=== PATIENT | male | born 1950 | race Caucasian/White ===

== ENCOUNTER 2019-01-07 20:58 | Inpatient (IN) | payer MEDICARE ==
[2019-01-07 21:16] LABS: ADD MAN DIFF? NO
[2019-01-07 21:18] LABS: WHITE BLOOD COUNT 9.5 10^3/ul (4.8-10.8)
[2019-01-07 21:18] LABS: BASOPHILS % 0.3 % (0.0-2.0); EOSINOPHILS # 0.1 10^3/ul (0.0-0.5); EOSINOPHILS % 0.8 % (0.0-7.0); HEMATOCRIT 33.2 % (42.0-52.0); HEMOGLOBIN 10.9 g/dl (14.0-18.0); LYMPHOCYTES # 2.3 10^3/ul (0.8-2.9); LYMPHOCYTES % 24.4 % (15.0-51.0); MEAN CORPUSCULAR HEMOGLOBIN 29.9 pg (29.0-33.0); MEAN CORPUSCULAR HGB CONC 32.8 g/dl (32.0-37.0); MEAN CORPUSCULAR VOLUME 91.2 fl (82.0-101.0); MEAN PLATELET VOLUME 9.8 fl (7.4-10.4); MONOCYTE # 0.5 10^3/ul (0.3-0.9); MONOCYTES % 5.2 % (0.0-11.0); NEUTROPHIL # 6.5 10^3/ul (1.6-7.5); NEUTROPHILS % 68.9 % (39.0-77.0); PLATELET COUNT 231 10^3/UL (140-415); RED BLOOD COUNT 3.64 10^6/ul (4.70-6.10); RED CELL DISTRIBUTION WIDTH 12.4 % (11.5-14.5)
[2019-01-07 21:25] LABS: INR 0.96; PROTIME 12.9 Sec (11.9-14.9)
[2019-01-07 21:27] LABS: ALANINE AMINOTRANSFERASE 15 IU/L (13-69); ALBUMIN 3.8 g/dl (3.3-4.9); ALBUMIN/GLOBULIN RATIO 1.52; ALKALINE PHOSPHATASE 50 IU/L (42-121); ANION GAP 12 (5-13); ASPARTATE AMINO TRANSFERASE 19 IU/L (15-46); BILIRUBIN,INDIRECT 0.4 mg/dl (0-1.1); BILIRUBIN,TOTAL 0.4 mg/dl (0.2-1.3); BLOOD UREA NITROGEN 22 mg/dl (7-20); CALCIUM 9.4 mg/dl (8.4-10.2); CARBON DIOXIDE 24 mmol/L (21-31); CHLORIDE 107 mmol/L (97-110); CREATININE 0.86 mg/dl (0.61-1.24); Estimated GFR > 60 mL/min (>60); GLUCOSE 140 mg/dl (70-220); POTASSIUM 3.7 mmol/L (3.5-5.1); SODIUM 143 mmol/L (135-144); TOTAL PROTEIN 6.3 g/dl (6.1-8.1)
[2019-01-07 21:38] LABS: TROPONIN-I < 0.012 ng/ml (0.000-0.120)
[2019-01-07] MEDS: SOD CHLORIDE 0.9% 500 ML IV (21:40)
[2019-01-07] MEDS: PANTOPRAZOLE IV 80 MG in SOD CHLORIDE 0.9% 100 ML IVPB (21:41)
[2019-01-07] MEDS: PANTOPRAZOLE IV 80 MG in SOD CHLORIDE 0.9% 100 ML IV (21:41)
[2019-01-07] MEDS: ONDANSETRON INJ 8 MG in DEXTROSE 5% 50 ML IVPB (21:52)
[2019-01-07] MEDS: OCTREOTIDE 50 MCG in SOD CHLORIDE 0.9% 25 ML IVPB (21:52)
[2019-01-07] MEDS: OCTREOTIDE 500 MCG in SOD CHLORIDE 0.9% 49 ML IV (21:52)
[2019-01-07] MEDS ORDERED: ONDANSETRON 4 MG INJ IV ×2 (23:00→23:30)
[2019-01-07] MEDS ORDERED: ACETAMINOPHEN 325 MG TAB PO (23:00)
[2019-01-07] MEDS: SOD CHLORIDE 0.9% 1,000 ML IV ×2 (23:28→23:29)
[2019-01-07] MEDS ORDERED: HYDROCODONE/APAP (5/325) TAB PO (23:30)
[2019-01-07] MEDS ORDERED: NITROGLYCERIN (SL) 0.4 MG TAB SL (23:30)
[2019-01-07] MEDS ORDERED: hydrALAzine 20 MG INJ IV (23:30)
[2019-01-07] MEDS ORDERED: NACL 0.9% 3 ML SYG IV (23:30)
[2019-01-07] MEDS ORDERED: MAGNESIUM HYDROXIDE 30ML CUP PO (23:30)
[2019-01-07] MEDS ORDERED: morphine 2 MG INJ IV (23:30)
[2019-01-07] MEDS ORDERED: LORAZEPAM 2 MG INJ IV (23:30)
[2019-01-07] MEDS ORDERED: DOCUSATE SODIUM 100 MG CAP PO (23:30)
[2019-01-07 23:58] LABS: FREE T4 (FREE THYROXINE) 1.22 ng/dl (0.78-2.44)
[2019-01-08] MEDS: PANTOPRAZOLE 40 MG INJ IV ×2 (05:34→17:11)
[2019-01-08 06:48] LABS: ADD MAN DIFF? NO; BASOPHILS % 0.3 % (0.0-2.0); EOSINOPHILS % 0.4 % (0.0-7.0); HEMATOCRIT 29.5 % (42.0-52.0); HEMOGLOBIN 9.6 g/dl (14.0-18.0); LYMPHOCYTES # 2.5 10^3/ul (0.8-2.9); LYMPHOCYTES % 35.8 % (15.0-51.0); MEAN CORPUSCULAR HEMOGLOBIN 29.4 pg (29.0-33.0); MEAN CORPUSCULAR HGB CONC 32.5 g/dl (32.0-37.0); MEAN CORPUSCULAR VOLUME 90.2 fl (82.0-101.0); MEAN PLATELET VOLUME 9.7 fl (7.4-10.4); MONOCYTE # 0.6 10^3/ul (0.3-0.9); MONOCYTES % 8.6 % (0.0-11.0); NEUTROPHIL # 3.8 10^3/ul (1.6-7.5); NEUTROPHILS % 54.5 % (39.0-77.0); PLATELET COUNT 211 10^3/UL (140-415); RED BLOOD COUNT 3.27 10^6/ul (4.70-6.10); RED CELL DISTRIBUTION WIDTH 12.6 % (11.5-14.5)
[2019-01-08 07:17] LABS: ANION GAP 6 (5-13); BLOOD UREA NITROGEN 19 mg/dl (7-20); CARBON DIOXIDE 28 mmol/L (21-31); CHLORIDE 107 mmol/L (97-110); CREATININE 0.76 mg/dl (0.61-1.24); Estimated GFR > 60 mL/min (>60); GLUCOSE 122 mg/dl (70-220); MAGNESIUM 1.9 mg/dl (1.7-2.5); PHOSPHORUS 3.9 mg/dl (2.5-4.9); POTASSIUM 4.8 mmol/L (3.5-5.1); SODIUM 141 mmol/L (135-144)
[2019-01-08 07:20] LABS: CHOLESTEROL 162 mg/dl (100-200)
[2019-01-08 07:20] LABS: CHOL/HDL RATIO 3.5 RATIO; HDL CHOLESTEROL 46 mg/dl (31-75); LDL CHOLESTEROL,CALCULATED 94 mg/dl; TRIGLYCERIDES 111 mg/dl (0-149)
[2019-01-08 07:43] LABS: THYROID STIMULATING HORMONE 0.384 MIU/L (0.465-4.680)
[2019-01-08 08:33] LABS: HEMOGLOBIN A1C 5.4 % (0-5.9)
[2019-01-08] MEDS: SOD CHLORIDE 0.9% 1,000 ML IV ×3 (09:04→18:56)
[2019-01-08] MEDS ORDERED: LIDOCAINE 2% (SDV) 5 ML INJ (12:27)
[2019-01-08] MEDS ORDERED: PROPOFOL 40 ML (12:27)
[2019-01-08] MEDS ORDERED: hydrALAzine 20 MG INJ IV (12:30)
[2019-01-08] MEDS ORDERED: DIPHENHYDRAMINE 50 MG INJ IV (12:30)
[2019-01-08] MEDS ORDERED: EPHEDrine 25 MG/5 ML SYG IV (12:30)
[2019-01-08] MEDS ORDERED: ONDANSETRON 4 MG INJ IV (12:30)
[2019-01-08] MEDS ORDERED: METOCLOPRAMIDE 10 MG INJ IV (12:30)
[2019-01-08] MEDS ORDERED: FENTAnyl 50 MCG/ML VIAL IV (12:30)
[2019-01-08] MEDS ORDERED: LABETALOL HCL 20MG INJ IV (12:30)
[2019-01-08] MEDS: SUCRALFATE 1 GM TAB PO ×3 (13:51→20:03)
[2019-01-08 18:58] LABS: HEMATOCRIT 26.6 % (42.0-52.0); HEMOGLOBIN 8.8 g/dl (14.0-18.0)
[2019-01-09] MEDS: ACETAMINOPHEN 325 MG TAB PO ×2 (00:05→08:27)
[2019-01-09 00:53] LABS: HEMATOCRIT 23.5 % (42.0-52.0); HEMOGLOBIN 7.7 g/dl (14.0-18.0)
[2019-01-09] MEDS: SOD CHLORIDE 0.9% 1,000 ML IV ×4 (01:53→18:37)
[2019-01-09] MEDS: PANTOPRAZOLE 40 MG INJ IV ×2 (05:21→17:06)
[2019-01-09 06:24] LABS: ADD MAN DIFF? NO
[2019-01-09 06:29] LABS: WHITE BLOOD COUNT 6.1 10^3/ul (4.8-10.8)
[2019-01-09 06:29] LABS: BASOPHILS % 0.5 % (0.0-2.0); EOSINOPHILS # 0.1 10^3/ul (0.0-0.5); EOSINOPHILS % 2.1 % (0.0-7.0); HEMATOCRIT 25.4 % (42.0-52.0); HEMOGLOBIN 8.2 g/dl (14.0-18.0); LYMPHOCYTES # 2.9 10^3/ul (0.8-2.9); LYMPHOCYTES % 46.8 % (15.0-51.0); MEAN CORPUSCULAR HGB CONC 32.3 g/dl (32.0-37.0); MEAN CORPUSCULAR VOLUME 89.8 fl (82.0-101.0); MEAN PLATELET VOLUME 9.9 fl (7.4-10.4); MONOCYTE # 0.4 10^3/ul (0.3-0.9); NEUTROPHIL # 2.6 10^3/ul (1.6-7.5); NEUTROPHILS % 43.1 % (39.0-77.0); PLATELET COUNT 190 10^3/UL (140-415); RED BLOOD COUNT 2.83 10^6/ul (4.70-6.10); RED CELL DISTRIBUTION WIDTH 12.6 % (11.5-14.5)
[2019-01-09 07:12] LABS: ANION GAP 4 (5-13); BLOOD UREA NITROGEN 13 mg/dl (7-20); CALCIUM 8.4 mg/dl (8.4-10.2); CARBON DIOXIDE 25 mmol/L (21-31); CHLORIDE 111 mmol/L (97-110); CREATININE 0.77 mg/dl (0.61-1.24); Estimated GFR > 60 mL/min (>60); GLUCOSE 102 mg/dl (70-220); POTASSIUM 3.7 mmol/L (3.5-5.1); SODIUM 140 mmol/L (135-144)
[2019-01-09] MEDS: SUCRALFATE 1 GM TAB PO ×4 (08:27→20:59)
[2019-01-09 14:24] LABS: HEMATOCRIT 24.4 % (42.0-52.0)
[2019-01-09] MEDS: IOHEXOL 14.3 MG(I)/ML (ADULT) BTL PO (18:42)
[2019-01-09 20:11] LABS: HEMATOCRIT 28.7 % (42.0-52.0); HEMOGLOBIN 9.4 g/dl (14.0-18.0)
[2019-01-09] MEDS ORDERED: SOD CHLORIDE 0.9% 100 ML (20:36)
[2019-01-09] MEDS ORDERED: IOHEXOL 300MG/ML 150 ML BTL (20:36)
[2019-01-10 01:00] LABS: HEMATOCRIT 24.6 % (42.0-52.0); HEMOGLOBIN 8.1 g/dl (14.0-18.0)
[2019-01-10] MEDS: PANTOPRAZOLE 40 MG INJ IV ×2 (05:04→17:11)
[2019-01-10] MEDS: SOD CHLORIDE 0.9% 1,000 ML IV ×3 (05:04→14:57)
[2019-01-10 06:41] LABS: ADD MAN DIFF? NO
[2019-01-10 06:57] LABS: BASOPHILS % 0.6 % (0.0-2.0); EOSINOPHILS # 0.2 10^3/ul (0.0-0.5); EOSINOPHILS % 2.5 % (0.0-7.0); HEMATOCRIT 25.1 % (42.0-52.0); HEMOGLOBIN 8.2 g/dl (14.0-18.0); LYMPHOCYTES # 2.9 10^3/ul (0.8-2.9); MEAN CORPUSCULAR HEMOGLOBIN 29.5 pg (29.0-33.0); MEAN CORPUSCULAR HGB CONC 32.7 g/dl (32.0-37.0); MEAN CORPUSCULAR VOLUME 90.3 fl (82.0-101.0); MEAN PLATELET VOLUME 9.8 fl (7.4-10.4); MONOCYTE # 0.6 10^3/ul (0.3-0.9); MONOCYTES % 8.3 % (0.0-11.0); NEUTROPHIL # 3.2 10^3/ul (1.6-7.5); NEUTROPHILS % 46.2 % (39.0-77.0); PLATELET COUNT 219 10^3/UL (140-415); RED BLOOD COUNT 2.78 10^6/ul (4.70-6.10); RED CELL DISTRIBUTION WIDTH 12.5 % (11.5-14.5)
[2019-01-10 06:57] LABS: WHITE BLOOD COUNT 6.9 10^3/ul (4.8-10.8)
[2019-01-10 07:25] LABS: ANION GAP 6 (5-13); BLOOD UREA NITROGEN 14 mg/dl (7-20); CALCIUM 8.7 mg/dl (8.4-10.2); CARBON DIOXIDE 27 mmol/L (21-31); CHLORIDE 108 mmol/L (97-110); CREATININE 0.74 mg/dl (0.61-1.24); Estimated GFR > 60 mL/min (>60); GLUCOSE 106 mg/dl (70-220); POTASSIUM 4.3 mmol/L (3.5-5.1); SODIUM 141 mmol/L (135-144)
[2019-01-10 07:41] LABS: FREE T4 (FREE THYROXINE) 1.08 ng/dl (0.78-2.44)
[2019-01-10 07:42] LABS: FREE T3 3.54 pg/ml (2.77-5.27)
[2019-01-10] MEDS: SUCRALFATE 1 GM TAB PO ×4 (08:11→20:23)
[2019-01-10 13:52] LABS: HEMATOCRIT 25.9 % (42.0-52.0); HEMOGLOBIN 8.6 g/dl (14.0-18.0)
[2019-01-10] MEDS ORDERED: ALBUTEROL 0.083% (NEB) 2.5 MG/3 ML AMP HHN (16:30)
[2019-01-10] MEDS: ALBUTEROL/IPRATROPIUM (NEB) 3 ML AMP HHN (17:26)
[2019-01-11] MEDS: PANTOPRAZOLE 40 MG INJ IV ×2 (05:59→17:24)
[2019-01-11 06:30] LABS: ADD MAN DIFF? NO
[2019-01-11 06:43] LABS: WHITE BLOOD COUNT 5.9 10^3/ul (4.8-10.8)
[2019-01-11 06:43] LABS: BASOPHILS % 0.7 % (0.0-2.0); EOSINOPHILS # 0.2 10^3/ul (0.0-0.5); EOSINOPHILS % 2.9 % (0.0-7.0); HEMATOCRIT 25.5 % (42.0-52.0); HEMOGLOBIN 8.6 g/dl (14.0-18.0); LYMPHOCYTES # 2.6 10^3/ul (0.8-2.9); LYMPHOCYTES % 44.7 % (15.0-51.0); MEAN CORPUSCULAR HEMOGLOBIN 29.9 pg (29.0-33.0); MEAN CORPUSCULAR HGB CONC 33.7 g/dl (32.0-37.0); MEAN CORPUSCULAR VOLUME 88.5 fl (82.0-101.0); MEAN PLATELET VOLUME 9.6 fl (7.4-10.4); MONOCYTE # 0.6 10^3/ul (0.3-0.9); MONOCYTES % 9.5 % (0.0-11.0); NEUTROPHIL # 2.5 10^3/ul (1.6-7.5); NEUTROPHILS % 41.7 % (39.0-77.0); PLATELET COUNT 244 10^3/UL (140-415); RED BLOOD COUNT 2.88 10^6/ul (4.70-6.10); RED CELL DISTRIBUTION WIDTH 12.6 % (11.5-14.5)
[2019-01-11 06:53] LABS: ANION GAP 8 (5-13); BLOOD UREA NITROGEN 12 mg/dl (7-20); CALCIUM 9.2 mg/dl (8.4-10.2); CARBON DIOXIDE 28 mmol/L (21-31); CHLORIDE 105 mmol/L (97-110); CREATININE 0.75 mg/dl (0.61-1.24); Estimated GFR > 60 mL/min (>60); GLUCOSE 107 mg/dl (70-220); POTASSIUM 3.7 mmol/L (3.5-5.1); SODIUM 141 mmol/L (135-144)
[2019-01-11] MEDS: ALBUTEROL/IPRATROPIUM (NEB) 3 ML AMP HHN (07:54)
[2019-01-11] MEDS: SUCRALFATE 1 GM TAB PO ×4 (08:08→20:04)
[2019-01-12] MEDS: PANTOPRAZOLE 40 MG INJ IV (05:25)
[2019-01-12 07:05] LABS: ADD MAN DIFF? NO
[2019-01-12 07:08] LABS: BASOPHILS % 0.7 % (0.0-2.0); EOSINOPHILS # 0.2 10^3/ul (0.0-0.5); HEMATOCRIT 26.6 % (42.0-52.0); LYMPHOCYTES # 2.5 10^3/ul (0.8-2.9); LYMPHOCYTES % 40.5 % (15.0-51.0); MEAN CORPUSCULAR HEMOGLOBIN 30.1 pg (29.0-33.0); MEAN CORPUSCULAR HGB CONC 33.8 g/dl (32.0-37.0); MEAN PLATELET VOLUME 9.4 fl (7.4-10.4); MONOCYTE # 0.5 10^3/ul (0.3-0.9); MONOCYTES % 8.9 % (0.0-11.0); NEUTROPHIL # 2.8 10^3/ul (1.6-7.5); NEUTROPHILS % 46.6 % (39.0-77.0); PLATELET COUNT 277 10^3/UL (140-415); RED BLOOD COUNT 2.99 10^6/ul (4.70-6.10); RED CELL DISTRIBUTION WIDTH 12.8 % (11.5-14.5)
[2019-01-12 07:08] LABS: WHITE BLOOD COUNT 6.1 10^3/ul (4.8-10.8)
[2019-01-12 07:28] LABS: ANION GAP 10 (5-13); BLOOD UREA NITROGEN 13 mg/dl (7-20); CARBON DIOXIDE 27 mmol/L (21-31); CHLORIDE 105 mmol/L (97-110); CREATININE 0.71 mg/dl (0.61-1.24); Estimated GFR > 60 mL/min (>60); GLUCOSE 111 mg/dl (70-220); POTASSIUM 3.6 mmol/L (3.5-5.1); SODIUM 142 mmol/L (135-144)
[2019-01-12] MEDS: SUCRALFATE 1 GM TAB PO (08:04)
== END 2019-01-12 12:05 | disposition home or self-care (01) | DRG 374 ==
LOC: TEL 22:57 → E/R 20:58
PROC: 0DB68ZX Excision of Stomach, Via Natural or Artificial Opening Endoscopic, Diagnostic (ICD-10-PCS; principal; 2019-01-08 11:30)
DX: C16.9 Malignant neoplasm of stomach, unspecified (principal); K25.4 Chronic or unspecified gastric ulcer with hemorrhage; K92.0 Hematemesis; D62 Acute posthemorrhagic anemia; K22.10 Ulcer of esophagus without bleeding; D50.9 Iron deficiency anemia, unspecified; K44.9 Diaphragmatic hernia without obstruction or gangrene; N40.0 Benign prostatic hyperplasia without lower urinary tract symptoms; Z87.891 Personal history of nicotine dependence
CPT/HCPCS: 36415; 71045; 74178; 80048; 80053; 80061; 83036; 83735; 84100; 84439; 84443; 84481; 84484; 85014; 85018; 85025; 85610; 85730; 86850; 86900; 86901; 88305; 88312; 94640; 96365; 99285-25